=== PATIENT | female | born 1985 | race Caucasian/White ===

== ENCOUNTER 2016-05-28 18:45 | Emergency (ER) | payer SELFPAY | END 2016-05-28 19:15 | disposition home or self-care (01) | LOC: SED 18:45 | DX: H10.11 Acute atopic conjunctivitis, right eye (principal); L03.011 Cellulitis of right finger; F17.210 Nicotine dependence, cigarettes, uncomplicated | CPT/HCPCS: 99283 ==

== ENCOUNTER 2016-07-24 03:47 | Emergency (ER) | payer OTHER ==
[2016-07-24] MEDS ORDERED: ADDERALL20 MG (03:56)
[2016-07-24] MEDS ORDERED: ALPRAZOLAM (03:56)
== END 2016-07-24 04:19 | disposition home or self-care (01) ==
LOC: SED 03:47
DX: T78.40XA Allergy, unspecified, initial encounter (principal); L01.00 Impetigo, unspecified; F90.9 Attention-deficit hyperactivity disorder, unspecified type; F17.200 Nicotine dependence, unspecified, uncomplicated; Z79.899 Other long term (current) drug therapy
CPT/HCPCS: 99282